=== PATIENT | male | born 1970 | race Caucasian/White ===

== ENCOUNTER 2018-08-06 07:32 | Emergency (ER) | payer MEDICAID, OTHER ==
[~2018-08-06] VITALS: Ht 182.9 cm; Wt 122.0 kg
[2018-08-06] MEDS ORDERED: aspirin 81mg tab.chew PO ONE (07:40)
[2018-08-06 08:13] LABS: BASOPHILS # (AUTO) 0.1 X10'3 (0-0.2); BASOPHILS % (AUTO) 0.6 % (0-1); EOSINOPHILS # (AUTO) 0.3 X10'3 (0-0.9); EOSINOPHILS % (AUTO) 2.9 % (0-6); HEMATOCRIT 49.1 % (42.0-52.0); LYMPHOCYTES # (AUTO) 2.7 X10'3 (1.1-4.8); LYMPHOCYTES % (AUTO) 25.1 % (21-51); MEAN CORPUSCULAR HEMOGLOBIN 30.5 PG (27.0-31.0); MEAN CORPUSCULAR HGB CONC 34.7 % (33.0-36.5); MEAN CORPUSCULAR VOLUME 87.9 FL (78-98); MEAN PLATELET VOLUME 7.6 FL (7.4-10.4); MONOCYTES # (AUTO) 0.5 X10'3 (0-0.9); NEUTROPHILS % (AUTO) 66.4 % (42-75); PLATELET COUNT 234 X10'3 (140-440); RED BLOOD COUNT 5.59 X10'6 (4.70-6.10); RED CELL DISTRIBUTION WIDTH 12.7 % (11.5-14.5); WHITE BLOOD COUNT 10.6 X10'3 (4.5-11.0)
[2018-08-06 08:44] LABS: ALANINE AMINOTRANSFERASE 36 U/L (12-78); ALBUMIN 3.3 G/DL (3.4-5.0); ALKALINE PHOSPHATASE 106 IU/L (46-116); ANION GAP 13 (8-16); ASPARTATE AMINO TRANSFERASE 17 U/L (10-37); BILIRUBIN,TOTAL 0.3 MG/DL (0.1-1.0); BLOOD UREA NITROGEN 18 MG/DL (7-18); BUN/CREATININE RATIO 15.3 (5.4-32.0); CHLORIDE 99 MMOL/L (99-107); CREATININE 1.18 MG/DL (0.60-1.10); GLUCOSE 445 MG/DL (70-104); MAGNESIUM 1.7 MG/DL (1.5-2.4); POTASSIUM 3.8 MMOL/L (3.5-5.1); SODIUM 137 MMOL/L (135-145); TOTAL CARBON DIOXIDE 24.6 MMOL/L (24-32); TOTAL PROTEIN 6.7 G/DL (6.4-8.2); eGFR 66 ML/MIN
[2018-08-06 08:58] LABS: INR 0.9 INR; PARTIAL THROMBOPLASTIN TIME 25 SECONDS (22-32); PROTHROMBIN TIME 9.7 SECONDS (9.0-12.0)
[2018-08-06] MEDS ORDERED: aspirin 325mg tablet PO ONE (09:20)
[2018-08-06] MEDS ORDERED: enoxaparin 100mg/ml syringe SUBCUT ONE (09:20)
[2018-08-06] MEDS ORDERED: nitroGLYCERIN 0.4mg/hour patch TD ONE (09:25)
[2018-08-06 09:28] LABS: D-DIMER 0.28 MG/L FEU (0-0.50)
[2018-08-06 10:09] LABS: URINE AMPHETAMINE SCREEN NEGATIVE (Neg); URINE BARBITUATE SCREEN NEGATIVE (Neg); URINE BENZODIAZEPINES SCREEN NEGATIVE (Neg); URINE CANNABINOID SCREEN NEGATIVE (Neg); URINE COCAINE SCREEN NEGATIVE (Neg); URINE METHADONE SCREEN NEGATIVE (Neg); URINE OPIATE SCREEN NEGATIVE (Neg); URINE PHENCYCLIDINE SCREEN NEGATIVE (Neg)
[2018-08-06 11:34] VITALS: BP 111/86
[2018-08-07] MEDS ORDERED: METO25TA6 PO (10:36)
[2018-08-07] MEDS ORDERED: PRAS10TA6 PO (10:36)
[2018-08-07] MEDS ORDERED: ASPI-1264 PO (10:36)
[2018-08-07] MEDS ORDERED: LISI40TA4 PO (10:36)
[2018-08-07] MEDS ORDERED: ATOR40TA PO (10:36)
[2018-08-08] MEDS ORDERED: METF-436 PO ×2 (10:35→10:42)
== END 2018-08-06 11:37 | disposition left against medical advice (07) ==
LOC: ER 07:33
DX: I21.4 Non-ST elevation (NSTEMI) myocardial infarction (principal); R07.89 Other chest pain; R79.89 Other specified abnormal findings of blood chemistry; I25.10 Atherosclerotic heart disease of native coronary artery without angina pectoris; F17.210 Nicotine dependence, cigarettes, uncomplicated; Z79.82 Long term (current) use of aspirin; Z95.5 Presence of coronary angioplasty implant and graft; Z79.899 Other long term (current) drug therapy
CPT/HCPCS: 36415; 71045; 80053; 80305; 83735; 83880; 84484; 85025; 85379; 85610; 85730; 93005; 96372; 99285; J1650

== ENCOUNTER 2019-11-05 13:10 | Outpatient (CLI) | payer OTHER ==
[~2019-11-05 13:10] MED LIST: ASPI-1264 PO; ATOR40TA PO; LISI40TA4 PO; METF-436 PO; METO25TA6 PO; PRAS10TA6 PO
[2019-11-05] MEDS ORDERED: ASPI1POW35 (14:06)
[2019-11-05] MEDS ORDERED: METF500T PO (14:06)
[2019-11-05 14:47] LABS: BASOPHILS # (AUTO) 0.1 X10'3 (0-0.2); BASOPHILS % (AUTO) 0.7 % (0-1); EOSINOPHILS # (AUTO) 0.2 X10'3 (0-0.9); EOSINOPHILS % (AUTO) 1.8 % (0-6); LYMPHOCYTES # (AUTO) 2.8 X10'3 (1.1-4.8); MEAN CORPUSCULAR HEMOGLOBIN 30.4 PG (27.0-31.0); MEAN CORPUSCULAR HGB CONC 34.1 g/dL (33.0-36.5); MEAN CORPUSCULAR VOLUME 89.1 FL (78-98); MEAN PLATELET VOLUME 7.7 FL (7.4-10.4); MONOCYTES # (AUTO) 0.6 X10'3 (0-0.9); MONOCYTES % (AUTO) 6.4 % (2-12); NEUTROPHILS # (AUTO) 5.4 X10'3 (1.8-7.7); NEUTROPHILS % (AUTO) 60.1 % (42-75); PRE OP HEMATOCRIT 48.5 % (42.0-52.0); PRE OP HEMOGLOBIN 16.5 g/dL (14.0-17.9); PRE OP PLATELET COUNT 238 X10'3 (140-440); RED BLOOD COUNT 5.44 X10'6 (4.70-6.10); RED CELL DISTRIBUTION WIDTH 12.5 % (11.5-14.5)
[2019-11-05 15:21] LABS: ALBUMIN 3.2 G/DL (3.4-5.0); ALBUMIN/GLOBULIN RATIO 0.9 (1.1-1.5); ALKALINE PHOSPHATASE 107 IU/L (46-116); BLOOD UREA NITROGEN 20 MG/DL (7-18); CALCIUM 8.4 MG/DL (8.5-10.1); CHLORIDE 106 MMOL/L (99-107); CREATININE 1.05 MG/DL (0.60-1.10); PRE OP ALT 25 U/L (30-65); PRE OP ANION GAP 7 (8-16); PRE OP AST 14 U/L (10-37); PRE OP BILIRUB, TOTAL 0.3 MG/DL (0.0-1.0); PRE OP POTASSIUM 4.1 MMOL/L (3.4-5.1); PRE OP SODIUM 142 MMOL/L (135-145); TOTAL CARBON DIOXIDE 29.5 MMOL/L (24-32); TOTAL PROTEIN 6.6 G/DL (6.4-8.2); eGFR 76 ML/MIN
[2019-11-05 15:31] LABS: PRE OP GLUCOSE 272 MG/DL (70-104)
== END 2019-11-05 23:59 | disposition home or self-care (01) ==
LOC: PRE-OP 13:10 → EDSTATUS 11-13 14:00
PROVIDERS: ATTEND Orthopaedic Surgery
DX: Z01.818 Encounter for other preprocedural examination (principal); M17.12 Unilateral primary osteoarthritis, left knee; S83.212A Bucket-handle tear of medial meniscus, current injury, left knee, initial encounter
CPT/HCPCS: 36415; 80053; 85025